=== PATIENT | male | born 2005 | race Caucasian/White ===

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

== ENCOUNTER 2023-01-12 10:49 | Emergency (ER) | payer SELFPAY ==
--- NOTE | 2023-01-12 10:50 | ED_ITS ---
HPI - Abdominal Pain General: Chief Complaint: Abdominal Pain Stated Complaint: abd pain Time Seen by Provider: 01/12/23 10:50 Source: patient and family Mode of arrival: ambulatory Limitations: no limitations History of Present Illness: Patient is a 17-year-old male who presents to ED today along with his mother for what he believes is acute appendicitis . According to patient he had acute appendicitis approximately 1.5 years ago but states it was not bad enough to take out . He states ever since then he has had intermittent right lower quadrant abdominal pains. He states over the past few months they have progressively worsened. He states I am ready to have it taken out now . Looking at previous documentation it looks like patient was seen here in our emergency department 08/[address] scan that did show acute appendicitis. He was consulted on by Dr. Jacques. During the course of his stay all of his pain resolved. His vital signs are normal. His white count was normal. Dr. Jacques's personal interpretation of the CT scan was felt to not represent acute appendicitis and he was subsequently discharged home. Patient states he has not noticed any alleviating or worsening factors to his intermittent pain. No nausea, vomiting, diarrhea. No urinary symptoms. No fevers. He has absolutely no pain or complaints currently upon arrival. MD elicited complaint: abdominal pain Pertinent past history: none Onset (ago): month(s) Pain Consistency: intermittent Location: RLQ Severity: moderate Quality: sharp Radiation: none Migration to: no migration Exacerbating factors: nothing Relieving factors: nothing Associated Symptoms: Reports no associated symptoms; Denies chills, diarrhea, dysuria, fever(s), heartburn, hematuria, nausea, syncope and vomiting Review of Systems Const: Denies: fever(s) or chills Eyes: Denies: change in vision or blurry vision Card: Denies: chest pain, palpitations, irregular heart rhythm, lightheadedness, syncope or dyspnea on exertion Resp: Denies: dyspnea, productive cough or pain on inspiration GI: Reports: abdominal pain (none currently); Denies: nausea, vomiting, heartburn or diarrhea : Denies: flank pain, difficulty urinating, dysuria, urinary frequency, urinary urgency, urinary hesitancy, urinary dribbling, hematuria or testicular pain Musc: Denies: neck pain, back pain, extremity pain or joint pain Skin/Breast: Denies: rash Neuro: Denies: headache(s), numbness in extremities, weakness in extremities, sensory changes or dizziness PFSH ED PFSH: Medical History MRSA (methicillin resistant Staphylococcus aureus) Surgical History History of drainage of abscess MRSA Social History Smoking and tobacco status: never smoked Second hand smoke exposure: No Physical Exam Const: COMMON NORMALS: no acute distress, patient oriented x3, no limitations, alert and well nourished GENERAL APPEARANCE: cooperative NUTRITIONAL APPEARANCE: overweight ORIENTATION/CONSCIOUSNESS: Yes awake, Yes oriented to person, Yes oriented to place and Yes oriented to time HENMT: COMMON NORMALS: normocephalic and atraumatic HEAD & SCALP: normocephalic and atraumatic Neck/C-Spine: COMMON NORMALS: full ROM, no lymphadenopathy, supple and no meningeal signs Chest: COMMONS NORMALS: normal inspection of the chest Resp: COMMON NORMALS: normal respiratory effort and clear to auscultation bilaterally AUSCULTATION: clear to auscultation bilaterally Cardio: COMMON NORMALS: regular rate and regular rhythm RATE: regular rate RHYTHM: regular rhythm GI: COMMON NORMALS: Normal to inspection, nondistended, normoactive bowel sounds present, Soft to palpation, non-tender, No hepatosplenomegaly present and no masses PALPATION: Yes Soft to palpation and Yes No hepatosplenomegaly present : COMMON NORMALS: Yes no CVA tenderness BLADDER/KIDNEY EXAM: Yes no CVA tenderness Back/Pelvis: COMMON NORMALS: no CVA tenderness and thoracic and lumbar spine normal to inspection Extremity: COMMON NORMALS: normal to inspection GENERAL: Yes normal exam except as noted Neuro: CARLITOS COMA SCALE: document GCS findings [place] coma scale eye opening: Spontaneous [place] coma scale verbal response: Orientated [place] coma scale motor response: Obey commands [place] coma scale total score: 15 COMMON NORMALS: patient oriented x3, moves all extremities, no focal motor deficits and no sensory deficits noted SENSORIUM/ORIENTATION: Yes alert, Yes oriented to person, Yes oriented to place and Yes oriented to time MENINGEAL SIGNS: Yes no meningeal signs Skin: COMMON NORMALS: no rashes or lesions noted GENERAL SKIN EXAM: no rashes or lesions noted Course Vital Signs: Vital signs: Vital Signs Temperature 98.2 F 01/12/23 10:56 Pulse Rate 85 01/12/23 11:33 Respiratory Rate 18 01/12/23 11:33 Blood Pressure 127/86 01/12/23 11:33 Pulse Oximetry 96 01/12/23 11:33 Oxygen Delivery Me thod Room Air 01/12/23 11:33 MDM - Abdominal Pain Medical Decision Making Patient's vital signs are stable. Upon arrival to the emergency department he has absolutely no pain. His bloodwork is unremarkable. At this time there is no need for emergent advanced imaging. Return ED precautions given. Will get him set up with primary care. Lab Data 01/12/23 11:06 01/12/23 11:06 Labs/Radiology: Laboratory Results WBC 6.37 10^3/uL (4.5-13.0) 01/12/23 11:06 RBC 5.72 10^6/uL (3.85-5.65) H 01/12/23 11:06 Hgb 16.20 g/dL (13.2-15.6) H 01/12/23 11:06 Hct 46.7 % (37-53) 01/12/23 11:06 MCV 81.6 fl (82-101) L 01/12/23 11:06 MCH 28.3 pg (27-33) 01/12/23 11:06 MCHC 34.7 g/dL (30-55) 01/12/23 11:06 RDW 11.8 % (12.1-15.1) L 01/12/23 11:06 Plt Count 302 10^3/cmm (157-399) 01/12/23 11:06 MPV 8.1 fL (7.4-10.4) 01/12/23 11:06 Neut % (Auto) 53.1 % 01/12/23 11:06 Lymph % (Auto) 32.2 % 01/12/23 11:06 [place] % (Auto) 10.7 % 01/12/23 11:06 Eos % (Auto) 3.1 % 01/12/23 11:06 Baso % (Auto) 0.6 % 01/12/23 11:06 Neut # (Auto) 3.38 10^3/uL (1.8-8.0) 01/12/23 11:06 Lymph # (Auto) 2.1 10^3/uL (1.5-6.5) 01/12/23 11:06 [place] # (Auto) 0.7 10^3/uL (0.2-0.9) 01/12/23 11:06 Eos # (Auto) 0.2 10^3/uL (0.0-0.8) 01/12/23 11:06 Baso # (Auto) 0.0 10^3/uL (0.0-0.1) 01/12/23 11:06 Nucleated RBC % (auto) 0 % 01/12/23 11:06 Nucleated RBCs # 0.0 /100WBC 01/12/23 11:06 Sodium 139 mmol/L (136-145) 01/12/23 11:06 Potassium 4.2 mmol/L (3.5-5.1) 01/12/23 11:06 Chloride 102 mmol/L (98-107) 01/12/23 11:06 Carbon Dioxide 27 mmol/L (22-29) 01/12/23 11:06 Anion Gap 14.2 (5-19) 01/12/23 11:06 BUN 15 mg/dL (6-20) 01/12/23 11:06 Creatinine 0.8 mg/dL (0.7-1.2) 01/12/23 11:06 GFR Calculation 124.5 mL/min (90-130) 01/12/23 11:06 Glucose 98 mg/dL (65-115) 01/12/23 11:06 Calculated Osmolality 289 mOsm/kg (285-295) 01/12/23 11:06 Calcium 9.1 mg/dL (8.5-10.5) 01/12/23 11:06 Total Bilirubin 0.6 mg/dL (0.15-1.2) 01/12/23 11:06 AST 22 U/L (0-40) 01/12/23 11:06 ALT 35 U/L (0-41) 01/12/23 11:06 Alkaline Phosphatase 110 U/L (40-130) 01/12/23 11:06 Total Protein 7.5 g/dL (6.6-8.7) 01/12/23 11:06 Albumin 4.9 g/dL (3.5-5.2) 01/12/23 11:06 Globulin 2.6 g/dL (1.3-4.6) 01/12/23 11:06 Lipase 20 U/L (13-60) 01/12/23 11:06 Urine Color Yellow (Yellow) 01/12/23 11:29 Urine Appearance Sl hazy (CLEAR) A 01/12/23 11:29 Urine pH 8 (5-7) H 01/12/23 11:29 Ur Specific [place] 1.015 (1.005-1.030) 01/12/23 11:29 Urine Protein Neg (Negative) 01/12/23 11:29 Urine Glucose (UA) Norm (Normal) 01/12/23 11:29 Urine Ketones Negative (Negative) 01/12/23 11:29 Urine Blood Neg (Negative) 01/12/23 11:29 Urine Nitrate Negative (Negative) 01/12/23 11:29 Urine Bilirubin Neg (Negative) 01/12/23 11:29 Prot Sulfosalicylic Acd Negative (Negative) 01/12/23 11:29 Urine Urobilinogen Norm mg/dL (Negative) 01/12/23 11:29 Ur Leukocyte Esterase Negative (Negative) 01/12/23 11:29 Urine RBC Rare /hpf (0-2) 01/12/23 11:29 Urine WBC Rare /hpf (0-5) 01/12/23 11:29 Ur Squamous Epith Cells 0-4 /hpf (0-5) H 01/12/23 11:29 Amorphous Sediment 1+ /hpf 01/12/23 11:29 Urine Bacteria Trace /hpf (NONE) 01/12/23 11:29 Urine Mucus None /hpf 01/12/23 11:29 No radiology studies performed this visit Discharge Plan Discharge Patient Disposition: Home Clinical Impression: Right lower quadrant pain Condition: Stable Prescriptions: No Action ibuprofen 200 mg tablet 200 mg PO Q6H PRN (Reason: Pain) Tums 200 mg calcium (500 mg) Tablet,Chewable 200 - 400 mg PO QID PRN (Reason: Heartburn) Discharge Orders: Discharge ED (Routine); Ordered 01/12/23 Ordered By: Megan Clark Patient Instructions: Abdominal Pain (ED) Coding Level of Care Code ED [place] Worker for Chg Kate
[2023-01-12 10:56] VITALS: BP 136/76; PULSE 88; RESP 18; TEMP 36.8; O2SAT 98
[2023-01-12 11:12] LABS: Basophils % 0.6 %; Eosinophils # 0.2 10^3/uL (0.0-0.8); Eosinophils % 3.1 %; Hematocrit 46.7 % (37-53); Lymphocytes # 2.1 10^3/uL (1.5-6.5); Lymphocytes % 32.2 %; Mean Corpuscular HGB Conc 34.7 g/dL (30-55); Mean Corpuscular Hemoglobin 28.3 pg (27-33); Mean Corpuscular Volume 81.6 fl (82-101); Mean Platelet Volume 8.1 fL (7.4-10.4); Monocytes # 0.7 10^3/uL (0.2-0.9); Monocytes % 10.7 %; Neutrophils # 3.38 10^3/uL (1.8-8.0); Neutrophils % 53.1 %; Nucleated Red Blood Cells % 0 %; Platelet Count 302 10^3/cmm (157-399); Red Blood Count 5.72 10^6/uL (3.85-5.65); Red Cell Distribution Width 11.8 % (12.1-15.1); White Blood Count 6.37 10^3/uL (4.5-13.0)
[2023-01-12 11:33] VITALS: BP 127/86; PULSE 85; RESP 18; O2SAT 96
[2023-01-12 11:37] LABS: Alanine Aminotransferase 35 U/L (0-41); Albumin Level 4.9 g/dL (3.5-5.2); Alkaline Phosphatase 110 U/L (40-130); Anion Gap 14.2 (5-19); Aspartate Amino Transferase 22 U/L (0-40); Blood Urea Nitrogen 15 mg/dL (6-20); Calcium 9.1 mg/dL (8.5-10.5); Carbon Dioxide 27 mmol/L (22-29); Chloride 102 mmol/L (98-107); Globulin 2.6 g/dL (1.3-4.6); Glomerular Filtration Rate 124.5 mL/min (90-130); Glucose 98 mg/dL (65-115); Lipase 20 U/L (13-60); Osmolality Calculated 289 mOsm/kg (285-295); Potassium 4.2 mmol/L (3.5-5.1); Sodium 139 mmol/L (136-145); Total Bilirubin 0.6 mg/dL (0.15-1.2); Total Protein 7.5 g/dL (6.6-8.7)
[2023-01-12 11:52] LABS: Add Urine Microscopic? YES; Bilirubin Urine Neg (Negative); Blood Urine Neg (Negative); Glucose Urine UA Norm (Normal); Ketones Urine Negative (Negative); Leukocyte Esterase Urine Negative (Negative); Nitrate Urine Negative (Negative); Protein Urine Neg (Negative); Specific Gravity, Urine 1.015 (1.005-1.030); Sulfosalicylic Acid Urine Negative (Negative); Urine Appearance SL Hazy (CLEAR); Urine Color Yellow (Yellow); Urobilinogen Urine Norm (Negative); pH Urine 8 (5-7)
[2023-01-12 11:56] LABS: Add Urine Culture? No; Amorphous Sediment Urine 1+ /hpf; Bacteria Urine TRACE /hpf; RBC Urine RARE /hpf (0-2); Squamous Epithelial Cell Urine 0-4 /hpf (0-5); WBC Urine RARE /hpf (0-5)
--- NOTE | 2023-01-12 12:48 | PC.SOCIAL ---
PCP Attempted to contact Family Medicine to establish primary care; no answer. Message/task used to request appt to establish primary care with Dr. John per patient request. Clinic to call patient with appt date/time.
== END 2023-01-12 12:48 | disposition home or self-care (01) ==
PROVIDERS: Emergency Provider Physician Assistant
DX: R10.31 Right lower quadrant pain (principal)
CPT/HCPCS: 36415; 80053; 81001; 83690; 85025; 99283